=== PATIENT | female | born 1995 | race Caucasian/White ===

== ENCOUNTER 2017-03-11 15:13 | Emergency (ER) | payer OTHER, BC ==
[~2017-03-11] VITALS: Ht 160 cm; Wt 67.1 kg
[2017-03-11 15:15] VITALS: BP 125/81
[2017-03-11] MEDS ORDERED: PLEASE ENTER ALLERGIES MC SCH ×2 (15:30)
[2017-03-11] MEDS ORDERED: DIPH,PERTUSS(ACELL),TET VAC/PF 0.5 ML IM-VACC ONE ×2 (15:30→15:52)
[2017-03-11] MEDS ORDERED: KETOROLAC 30 MG/1 ML IM ONE (15:30)
[2017-03-11] MEDS ORDERED: KETOROLAC 30 MG/1 ML ONE (15:52)
[2017-03-11] MEDS ORDERED: BACITRACIN ZINC OINT 500U/GM, 0.9 GM ONE (15:52)
[2017-03-11] MEDS ORDERED: BACITRACIN ZINC OINT 500U/GM, 0.9 GM TP SCH (16:30)
== END 2017-03-11 16:19 | disposition home or self-care (01) ==
LOC: ED 16:00
DX: T21.11XA Burn of first degree of chest wall, initial encounter (principal); S20.219A Contusion of unspecified front wall of thorax, initial encounter; T31.0 Burns involving less than 10% of body surface; V43.52XA Car driver injured in collision with other type car in traffic accident, initial encounter; Y93.89 Activity, other specified; Y92.410 Unspecified street and highway as the place of occurrence of the external cause; Y99.8 Other external cause status
CPT/HCPCS: 71020; 93005; 96372; 99284; J1885